=== PATIENT | male | born 2000 | race Caucasian/White ===

== ENCOUNTER 2021-04-05 19:51 | Emergency (ER) | payer OTHER ==
[2021-04-05 23:37] LABS: HEMOGLOBIN 14.2 gm/dl (14.0-17.5); RED BLOOD COUNT 4.94 M/UL (4.20-5.50); WHITE BLOOD COUNT 7.6 K/UL (4.5-11.0)
[2021-04-05 23:56] LABS: BUN/CREATININE RATIO 15 (0-10)
[2021-04-06] MEDS ORDERED: BENTYL 20MG TAB20 MG PO (03:47)
[2021-04-06] MEDS ORDERED: ZOFRAN ODT 4 MG4 MG PO (03:47)
[2021-04-06] MEDS ORDERED: LODINE CAP 300300 MG PO (03:47)
== END 2021-04-06 03:50 | disposition home or self-care (01) ==
LOC: ER1 19:51
PROVIDERS: Physician Assistant
DX: R10.9 Unspecified abdominal pain (principal); R10.812 Left upper quadrant abdominal tenderness
CPT/HCPCS: 80053; 81001; 85025; 85652; 86140; 87086; 99284; Q9967